=== PATIENT | female | born 1950 | race Caucasian/White ===

== ENCOUNTER 2021-05-01 01:03 | Inpatient (IN) | payer MEDICARE ==
[~2021-05-01] VITALS: Ht 165.1 cm; Wt 96.2 kg
[~2021-05-01 01:03] MED LIST: ASPIRIN CHEWABL81 MG PO; ATENOLOL25 MG PO; AUGMENTIN 500-1 EACH PO; AUGMENTIN 875-1 EACH PO; AZITHROMYCIN250 MG PO; CERTAGEN1 EACH PO; COUMADIN 1MG TAB1 MG PO; FOLIC ACID1 M1 PO; GABAPENTIN400 MG PO; HUMALOG100 UNIT/1 SC; KEPPRA500 MG PO; LEVEMIR100 UNIT/1 SC; LEVOTHYROXINE175 MCG PO; LIPITOR40 MG PO; LISINOPRIL5 MG PO; LOVAZA1 GM PO; NIACIN500 M1 PO; NORVASC5 MG PO; QUNOL PO; VITAMIN D31000 UNIT PO; WARFARIN SODIUM2 MG PO; ZOFRAN8 MG PO
[2021-05-01 01:45] LABS: BASOPHIL 0.2 % (0-2); EOSINOPHIL 0.3 % (0-7); HGB 13.6 g/dl (12.5-16.0); LYMPHOCYTE 22.5 % (15-48); MCH 34.7 pg (25.0-31.0); MCHC 33.2 g/dL (32.0-36.0); MCV 104.6 fL (78.0-100.0); MONOCYTE 3.7 % (0-12); MPV 10.3 fL (6.0-9.5); NEUTROPHIL 72.6 % (41-80); NRBC 0.3; PLT 302 K/uL (150-400); RBC 3.92 M/uL (4.20-5.40); WBC 9.2 K/uL (4.0-10.5)
[2021-05-01 02:00] LABS: BUN 23 mg/dL (7-18); BUN/CREAT RATIO (CALC) 13.3 RATIO; C-REACTIVE PROTEIN <0.20 mg/dL (<=0.90); CHLORIDE 102 mmol/L (98-107); CO2 (BICARBONATE) 28 mmol/L (21-32); CREATININE 1.73 mg/dL (0.51-0.95); GLUCOSE 230 mg/dL (74-106); POTASSIUM 3.4 mmol/L (3.5-5.1)
[2021-05-01 02:15] LABS: BILIRUBIN NEGATIVE (NEGATIVE); BLOOD NEGATIVE Ery/uL (NEGATIVE); CLARITY CLEAR (CLEAR); COLOR YELLOW (YELLOW); GLUCOSE (U) 3+ mg/dL (NORMAL); LEUKOCYTES NEGATIVE Leu/uL (NEGATIVE); NITRITE NEGATIVE (NEGATIVE); PROTEIN NEGATIVE (NEGATIVE); UROBILINOGEN 0.2 mg/dL (0.2-1.0)
[2021-05-01 04:39] LABS: INR 1.64 (0.9-1.2); PROTHROMBIN TIME 18.7 SECONDS (11.8-13.4); PTT 31.1 SECONDS (24.4-34.7)
[2021-05-01 06:10] LABS: MAGNESIUM 1.9 mg/dL (1.8-2.4); PHOSPHORUS 3.8 mg/dL (2.6-4.7)
[2021-05-01 06:15] LABS: CKMB 1.5 ng/mL (0.0-3.6)
[2021-05-01] MEDS ORDERED: LOPRESSOR25 MG PO (06:38)
[2021-05-01] MEDS ORDERED: SPIRIVA18 MCG INH (06:39)
[2021-05-01] MEDS ORDERED: NORVASC2.5 MG PO (06:40)
[2021-05-01] MEDS ORDERED: ZOCOR20 MG PO (06:40)
[2021-05-01] MEDS ORDERED: SYNTHROID150 MCG PO (06:41)
[2021-05-01] MEDS ORDERED: WARFARIN SODIUM1 MG PO (06:42)
[2021-05-01] MEDS ORDERED: FENOFIBRATE48 MG PO (06:42)
[2021-05-01] MEDS ORDERED: REQUIP0.25 MG PO (06:43)
[2021-05-01] MEDS ORDERED: HUMULIN 70100 UNIT/1 SC (06:44)
[2021-05-01] MEDS ORDERED: BUMEX1 MG PO (06:45)
[2021-05-01] MEDS ORDERED: FOLIC ACID1 MG PO (06:46)
[2021-05-01] MEDS ORDERED: ASPIRIN EC81 M1 PO (06:46)
[2021-05-01] MEDS ORDERED: COQ-10100 MG PO (06:47)
[2021-05-01] MEDS ORDERED: ACETAMINOPHEN325 MG PO (06:48)
[2021-05-01 07:15] LABS: HCT 36.7 % (37.0-47.0); MCH 35.3 pg (25.0-31.0); MCHC 32.7 g/dL (32.0-36.0); MCV 107.9 fL (78.0-100.0); MPV 10.2 fL (6.0-9.5); RBC 3.4 M/uL (4.20-5.40); RDW 14.3 % (11.5-14.0); WBC 15.2 K/uL (4.0-10.5)
[2021-05-01 07:22] LABS: ALBUMIN 2.6 g/dL (3.4-5.0); BILIRUBIN - TOTAL 0.5 mg/dL (0.2-1.0); BUN/CREAT RATIO (CALC) 15.1 RATIO; CREATININE 1.85 mg/dL (0.51-0.95); GLOBULIN (CALCULATION) 3.3 g/dL; POTASSIUM 4.2 mmol/L (3.5-5.1); TOTAL PROTEIN 5.9 g/dL (6.4-8.2)
[2021-05-01 09:56] LABS: CREATININE 1.87 mg/dL (0.51-0.95); POTASSIUM 3.7 mmol/L (3.5-5.1)
[2021-05-02 06:21] LABS: INR 2.01 (0.9-1.2); PROTHROMBIN TIME 21.9 SECONDS (11.8-13.4)
[2021-05-02 06:28] LABS: BASOPHIL 0.3 % (0-2); EOSINOPHIL 1.3 % (0-7); HCT 36.9 % (37.0-47.0); HGB 11.9 g/dl (12.5-16.0); MCH 34.9 pg (25.0-31.0); MCHC 32.2 g/dL (32.0-36.0); MCV 108.2 fL (78.0-100.0); MONOCYTE 6.9 % (0-12); MPV 10.8 fL (6.0-9.5); NEUTROPHIL 70.1 % (41-80); NRBC 0; PLT 277 K/uL (150-400); RBC 3.41 M/uL (4.20-5.40); RDW 14.3 % (11.5-14.0); WBC 11.3 K/uL (4.0-10.5)
[2021-05-02 06:35] LABS: BUN/CREAT RATIO (CALC) 16.3 RATIO; CREATININE 1.78 mg/dL (0.51-0.95); POTASSIUM 3.4 mmol/L (3.5-5.1)
--- NOTE | 2021-05-02 13:46 | NUR ---
TC WITH DAUGHTER, AUTUMN ORTIZ, . SHE ADVISED THAT PT REQUIRES THERAPY SHE CAN'T HELP HERSELF. DAUGHTER IS REQUESTING [facility]ONIAL 1ST CHOICE AND LANDMARK 2ND. [facility]
[2021-05-03 06:09] LABS: BASOPHIL 0.3 % (0-2); EOSINOPHIL 1.9 % (0-7); HCT 37.4 % (37.0-47.0); HGB 12.3 g/dl (12.5-16.0); MCH 35.4 pg (25.0-31.0); MCHC 32.9 g/dL (32.0-36.0); MCV 107.8 fL (78.0-100.0); MONOCYTE 9.1 % (0-12); MPV 10.7 fL (6.0-9.5); NEUTROPHIL 65.2 % (41-80); NRBC 0; PLT 271 K/uL (150-400); RBC 3.47 M/uL (4.20-5.40); RDW 14.3 % (11.5-14.0); WBC 10.5 K/uL (4.0-10.5)
[2021-05-03 06:17] LABS: INR 1.97 (0.9-1.2); PROTHROMBIN TIME 21.6 SECONDS (11.8-13.4)
[2021-05-03 06:26] LABS: IRON % SATURATION 16.7 %SAT (20-50)
[2021-05-03 06:58] LABS: BUN/CREAT RATIO (CALC) 19.4 RATIO; CREATININE 1.8 mg/dL (0.51-0.95); POTASSIUM 3.9 mmol/L (3.5-5.1)
[2021-05-03] MEDS ORDERED: BUMEX1 MG PO (08:36)
[2021-05-03] MEDS ORDERED: TRAMADOL HCL50 MG PO (08:36)
--- NOTE | 2021-05-03 12:47 | NUR ---
PT HAS BEEN ACCEPTED AT [facility]. REPORT NUMBER IS [id number] FAX D/C SUMMARY TO [phone]
== END 2021-05-03 13:05 | DRG 291 ==
LOC: FER 01:03 → FMS 05:07
PROVIDERS: Emergency Medicine Emergency Medical Services; Family Medicine; Nurse Practitioner; Nurse Practitioner Family; ADMIT Allergy & Immunology Allergy
DX: I13.0 Hypertensive heart and chronic kidney disease with heart failure and stage 1 through stage 4 chronic kidney disease, or unspecified chronic kidney disease (principal); I50.33 Acute on chronic diastolic (congestive) heart failure; J96.01 Acute respiratory failure with hypoxia; N17.9 Acute kidney failure, unspecified; I69.351 Hemiplegia and hemiparesis following cerebral infarction affecting right dominant side; E11.22 Type 2 diabetes mellitus with diabetic chronic kidney disease; Z20.822 Contact with and (suspected) exposure to COVID-19; D53.9 Nutritional anemia, unspecified; E87.6 Hypokalemia; M17.11 Unilateral primary osteoarthritis, right knee; I25.10 Atherosclerotic heart disease of native coronary artery without angina pectoris; E78.5 Hyperlipidemia, unspecified; E66.9 Obesity, unspecified; G47.30 Sleep apnea, unspecified; I48.91 Unspecified atrial fibrillation; J44.9 Chronic obstructive pulmonary disease, unspecified; I34.0 Nonrheumatic mitral (valve) insufficiency; Z68.35 Body mass index [BMI] 35.0-35.9, adult; Z88.5 Allergy status to narcotic agent; Z79.01 Long term (current) use of anticoagulants; Z79.82 Long term (current) use of aspirin; Z79.899 Other long term (current) drug therapy; Z95.1 Presence of aortocoronary bypass graft; Z95.5 Presence of coronary angioplasty implant and graft; Z98.890 Other specified postprocedural states; Z87.891 Personal history of nicotine dependence; Z90.49 Acquired absence of other specified parts of digestive tract
CPT/HCPCS: 36415; 71045; 73564; 80048; 80053; 81003; 82553; 82607; 83540; 83550; 83735; 83880; 84100; 84484; 85025; 85379; 85610; 85730; 86140; 93005; 93971; 94640; 94660; 96374; 96375; 97162; 97165; 97530-GP; 97535; J1170; J2405; U0002

== ENCOUNTER 2021-05-11 04:24 | Emergency (ER) | payer MEDICARE ==
[~2021-05-11 04:24] MED LIST changes: +ACETAMINOPHEN325 MG PO; +ASPIRIN EC81 M1 PO; +BUMEX1 MG PO; +COQ-10100 MG PO; +FENOFIBRATE48 MG PO; +FOLIC ACID1 MG PO; +HUMULIN 70100 UNIT/1 SC; +LOPRESSOR25 MG PO; +NORVASC2.5 MG PO; +REQUIP0.25 MG PO; +SPIRIVA18 MCG INH; +SYNTHROID150 MCG PO; +TRAMADOL HCL50 MG PO; +WARFARIN SODIUM1 MG PO; +ZOCOR20 MG PO
[2021-05-11 04:45] LABS: BASOPHIL 0.4 % (0-2); EOSINOPHIL 2.2 % (0-7); HCT 37.7 % (37.0-47.0); HGB 12.6 g/dl (12.5-16.0); LYMPHOCYTE 29.1 % (15-48); MCH 35.1 pg (25.0-31.0); MCHC 33.4 g/dL (32.0-36.0); MONOCYTE 9.3 % (0-12); MPV 10.7 fL (6.0-9.5); NEUTROPHIL 58.7 % (41-80); NRBC 0; PLT 294 K/uL (150-400); RBC 3.59 M/uL (4.20-5.40); RDW 13.8 % (11.5-14.0); WBC 12.7 K/uL (4.0-10.5)
[2021-05-11 05:02] LABS: INR 4.18 (0.9-1.2); PROTHROMBIN TIME 39.2 SECONDS (11.8-13.4); PTT 42.4 SECONDS (24.4-34.7)
[2021-05-11 05:22] LABS: BILIRUBIN - TOTAL 0.3 mg/dL (0.2-1.0); BUN/CREAT RATIO (CALC) 21.8 RATIO; CREATININE 2.2 mg/dL (0.51-0.95); FT4 (FREE T4) 1.4 ng/dL (0.76-1.46); GLOBULIN (CALCULATION) 3.6 g/dL; MAGNESIUM 2.3 mg/dL (1.8-2.4); POTASSIUM 3.2 mmol/L (3.5-5.1); TOTAL PROTEIN 6.6 g/dL (6.4-8.2)
[2021-05-11 05:27] LABS: CORONAVIRUS 2019 SARS-COV-2 NEGATIVE (NEGATIVE); INFLUENZA A NAA NEGATIVE (NEGATIVE)
== END 2021-05-11 07:10 | disposition home or self-care (01) ==
LOC: FER 04:24
PROVIDERS: Internal Medicine
DX: R07.89 Other chest pain (principal); J44.9 Chronic obstructive pulmonary disease, unspecified; I25.10 Atherosclerotic heart disease of native coronary artery without angina pectoris; E11.9 Type 2 diabetes mellitus without complications; Z20.822 Contact with and (suspected) exposure to COVID-19; Z99.81 Dependence on supplemental oxygen; Z95.5 Presence of coronary angioplasty implant and graft; Z95.1 Presence of aortocoronary bypass graft; Z88.5 Allergy status to narcotic agent; Z79.4 Long term (current) use of insulin
CPT/HCPCS: 36415; 71045; 80053; 83690; 83735; 83880; 84145; 84439; 84443; 84484; 85025; 85610; 85730; 93005; J3475; J7050; U0002

== ENCOUNTER 2021-05-22 18:49 | Emergency (ER) | payer MEDICARE ==
[2021-05-22 20:47] LABS: BASOPHIL 0.3 % (0-2); EOSINOPHIL 2.7 % (0-7); HCT 40.9 % (37.0-47.0); HGB 13.6 g/dl (12.5-16.0); LYMPHOCYTE 24.7 % (15-48); MCH 34.9 pg (25.0-31.0); MCHC 33.3 g/dL (32.0-36.0); MCV 104.9 fL (78.0-100.0); MONOCYTE 9.5 % (0-12); MPV 10.6 fL (6.0-9.5); NEUTROPHIL 62.3 % (41-80); NRBC 0; PLT 329 K/uL (150-400); RDW 13.5 % (11.5-14.0); WBC 12.8 K/uL (4.0-10.5)
[2021-05-22 20:57] LABS: PROTHROMBIN TIME 53.6 SECONDS (11.8-13.4); PTT 46.2 SECONDS (24.4-34.7)
[2021-05-22 21:02] LABS: INR 6.2 (0.9-1.2)
== END 2021-05-22 22:30 | disposition home or self-care (01) ==
LOC: FER 18:49
PROVIDERS: Internal Medicine
DX: R79.1 Abnormal coagulation profile (principal); I48.91 Unspecified atrial fibrillation; I50.9 Heart failure, unspecified; E11.9 Type 2 diabetes mellitus without complications; J44.9 Chronic obstructive pulmonary disease, unspecified; Z87.891 Personal history of nicotine dependence; Z79.899 Other long term (current) drug therapy
CPT/HCPCS: 36415; 85025; 85610; 85730; 99284

== ENCOUNTER 2021-06-03 21:52 | Emergency (ER) | payer MEDICARE | END 2021-06-04 02:10 | disposition SNUO | LOC: FER 21:52 | DX: S80.01XA Contusion of right knee, initial encounter (principal); S90.511A Abrasion, right ankle, initial encounter; J44.9 Chronic obstructive pulmonary disease, unspecified; E11.9 Type 2 diabetes mellitus without complications; I50.9 Heart failure, unspecified; W18.2XXA Fall in (into) shower or empty bathtub, initial encounter; Y92.129 Unspecified place in nursing home as the place of occurrence of the external cause | CPT/HCPCS: 70450; 72125; 73030; 73522; 73560; 73600 ==